=== PATIENT | female | born 1980 | race Caucasian/White ===

== ENCOUNTER 2018-02-08 21:51 | Emergency (ER) | payer OTHER ==
[~2018-02-08] VITALS: Ht 157.5 cm; Wt 66.4 kg
[2018-02-08 22:36] LABS: HEMOGLOBIN 14.8 G/DL (12.5-16.6); MCH 31.1 PG (29.0-34.0); MCHC 34.4 G/DL (30.0-36.0); MCV 90.3 FL (86-99); PLATELET COUNT 349 K/uL (156-360); RBC DIS.WIDTH-CV 12.4 % (11.8-14.6); RBC DIS.WIDTH-SD 41.2 % (39-53); RED BLOOD COUNT 4.76 M/uL (4.00-5.50); WHITE BLOOD COUNT 15.8 K/uL (4.1-10.2)
[2018-02-08 22:48] LABS: CHLORIDE 103 mEq/L (99-109); POTASSIUM 3.9 mEq/L (3.7-5.4); SODIUM 140 mEq/L (136-147)
[2018-02-08 22:50] LABS: GLUCOSE 94 mg/dL (70-99)
[2018-02-08 22:53] LABS: CREATININE 0.7 mg/dL (0.6-1.3)
[2018-02-08 22:54] LABS: GFR ESTIMATE (CALCULATED) > 59 mL/min/ (58.99-99999); UREA NITROGEN (BUN) 7 mg/dL (9-23)
[2018-02-08 23:28] LABS: TROP-I INTERPRETATION NEGATIVE; TROPONIN-I < 0.01 ng/mL (0.0-0.30)
[2018-02-09 01:07] LABS: TROP-I INTERPRETATION NEGATIVE; TROPONIN-I < 0.01 ng/mL (0.0-0.30)
[2018-02-09 01:20] VITALS: BP 106/66
== END 2018-02-09 01:21 | disposition home or self-care (01) ==
LOC: EDSEX 21:51 → EME 21:51
PROVIDERS: Emergency Medicine
DX: R07.89 Other chest pain (principal); R51 Headache; F41.9 Anxiety disorder, unspecified; F32.9 Major depressive disorder, single episode, unspecified; Z90.49 Acquired absence of other specified parts of digestive tract; Z98.51 Tubal ligation status
CPT/HCPCS: 70450; 71046; 80048; 84484; 85027; 85379; 93005; 99281; 99285; J1885